=== PATIENT | female | born 1955 | race African-American/Black ===

== ENCOUNTER 2023-12-20 09:27 | Outpatient (CLI) | payer MEDICARE | END 2023-12-20 09:28 | disposition home or self-care (01) | LOC: CSHMRI 09:27 | PROVIDERS: ATTEND Nurse Practitioner Family | DX: K76.89 Other specified diseases of liver (principal); C56.9 Malignant neoplasm of unspecified ovary; K76.9 Liver disease, unspecified; N28.1 Cyst of kidney, acquired; K86.2 Cyst of pancreas; K83.8 Other specified diseases of biliary tract | CPT/HCPCS: 36415; 74183; 82565 ==

== ENCOUNTER 2024-01-31 13:14 | Outpatient (CLI) | payer MEDICARE | END 2024-01-31 13:15 | disposition home or self-care (01) | LOC: CSHMAMMO 13:14 | PROVIDERS: ATTEND Family Medicine | DX: Z12.31 Encounter for screening mammogram for malignant neoplasm of breast (principal); M81.0 Age-related osteoporosis without current pathological fracture; M85.89 Other specified disorders of bone density and structure, multiple sites; Z80.3 Family history of malignant neoplasm of breast | CPT/HCPCS: 77063; 77067; 77080 ==

== ENCOUNTER 2025-02-06 13:30 | Outpatient (CLI) | payer MEDICARE | END 2025-02-06 13:31 | disposition home or self-care (01) | LOC: CSHMAMMO 13:30 | PROVIDERS: ATTEND Family Medicine | DX: Z12.31 Encounter for screening mammogram for malignant neoplasm of breast (principal); Z80.3 Family history of malignant neoplasm of breast | CPT/HCPCS: 77063; 77067 ==

== ENCOUNTER 2025-02-15 12:35 | Outpatient (CLI) | payer MEDICARE ==
[2025-02-15 13:32] LABS: Estimated GFR - POC 53.0
== END 2025-02-15 12:36 | disposition home or self-care (01) ==
LOC: CSHMRI 12:35
PROVIDERS: ATTEND Nurse Practitioner Family
DX: C56.9 Malignant neoplasm of unspecified ovary (principal); K76.9 Liver disease, unspecified; K86.2 Cyst of pancreas; K76.89 Other specified diseases of liver
CPT/HCPCS: 36415; 74183; 82565